=== PATIENT | female | born 1960 | race Caucasian/White ===

== ENCOUNTER 2017-12-12 08:54 | Observation (INO) ==
[2017-12-12] MEDS ORDERED: NS 1,000 ML IV ONE (09:27)
[2017-12-12] MEDS ORDERED: KETOROLAC 30 MG/ML INJECTION IVP ONE (09:38)
[2017-12-12] MEDS ORDERED: ONDANSETRON 4 MG/2 ML INJECTION IVP ONE (09:41)
--- NOTE | 2017-12-12 09:53 | Emergency Department Report ---
Nausea/Vomiting/Diarrhea HPI - General Chief complaint: Abdominal Pain Stated complaint: abd pain Time Seen by Provider: 12/12/17 09:00 Source: patient, RN notes reviewed, old records reviewed, other ("Friend") Mode of arrival: wheelchair Limitations: no limitations - History of Present Illness HPI Narrative: 57yo woman presents to the ER for evaluation of N/V/D. Pt is s/p recent mastectomy/oophorectomy for CA. Pt has completed chemo (off x3 weeks now) and other interventions. Had surgery 2 weeks ago for a seroma or abscess (unclear at this time) in [place]; pt has a SOPHIA drain still in place. Pt got mad at her yesterday and at 1/2 can of peanuts. This AM at 0130, pt began to have diarrhea. 1hr later, she developed N/V. Now pt has no more V/D, but is still nauseated and is 'belching' frequently. Pts last oral intake was at 1800 yesterday. MD complaint: nausea, vomiting, diarrhea Onset (ago): hour(s) (10) Description of Vomiting: food contents Description of Diarrhea: other (Loose stools) Associated Abdominal Pain: Yes Location of pain: diffuse Severity: moderate Quality: cramping Consistency: colicky Relieving factors: none Exacerbating factors: movement Context: possible food poisoning, recent surgery/procedure Associated symptoms: denies other symptoms - Related Data Home Medications Medication Instructions Recorded Confirmed Duloxetine [Cymbalta] 30 mg PO BID #0 cap 07/10/16 12/12/17 Lipitor (atorvastatin) 40 mg tablet 40 mg PO DAILY tab 06/09/17 12/12/17 Metoprolol Tartrate [Lopressor] 25 mg PO BID 07/21/17 12/12/17 Aspirin/Acetaminophen/Caffeine 1 each PO PRN 09/14/17 12/12/17 [Excedrin Migraine Caplet] Acetaminophen [Pain Relief] 1,000 mg PO Q8H PRN 12/12/17 12/12/17 Aspirin [Aspirin EC] 81 mg PO DAILY 12/12/17 12/12/17 Diclofenac Potassium 75 mg PO BID 12/12/17 12/12/17 Gabapentin [Neurontin] 400 mg PO TID 12/12/17 12/12/17 Ibuprofen [Ibu] 600 mg PO QID PRN 12/12/17 12/12/17 cephALEXin [Cephalexin] 500 mg PO QID 12/12/17 12/12/17 Previous Rx's Medication Instructions Recorded Oxycodone/Acetaminophen 5/325 1 - 2 tab PO Q5H PRN #5 tab 09/14/17 [Percocet 5/325] Allergies Allergy/AdvReac Type Severity Reaction Status Date / Time niacin Allergy Unknown REDNESS Verified 12/12/17 09:18 Sulfa (Sulfonamide Allergy Unknown BLISTERS Verified 12/12/17 09:18 Antibiotics) IN MOUTH Review of Systems All systems: reviewed and negative except as stated Gastrointestinal: Reports: as per HPI, abdominal pain, nausea, vomiting, diarrhea. Denies: constipation, hematemesis, melena, hematochezia PFSH Patient Stated Medical History Migraine Yes Cataracts Yes Hearing Loss Yes: wears hearing aides/left one in place Other HEENT Yes: wears glasses Coronary Artery Disease Yes Hypertension Yes Sleep Apnea Yes: wears cpap at night Gastroesophageal Reflux Yes Disease Anemia Yes Osteoarthritis Yes Anesthesia Reactions Yes: NAUSEA Depression Yes Fibroids Yes Ovarian Cysts Yes Clinic Medical History (Last Updated 09/08/17 @ 16:08 by Gabe Womack MD) Cyst of ovary (Resolved Medical) S/P bilateral oophorectomy MIKE (obstructive sleep apnea) (Chronic Medical) Migraine headache (Chronic Medical) Arthritis (Chronic Medical) Depression (Chronic Medical) Anxiety (Chronic Medical) Hypercholesterolemia (Chronic Medical) Breast cancer (Acute Medical 05/19/17) Oncologist: Dr. aCsh Diagnosed: 05/19/2017 invasive ductal carcinoma, SBR/Florentino Grade 3 - Triple Negative receptor studies. Negative lymph node biopsy. Tx: Bilateral mastectomies with left axillary SLNB. Anemia (Chronic Medical) Acid reflux (Chronic Medical) HTN (hypertension) (Chronic Medical) CAD (coronary artery disease) (Chronic Medical) Auto Body Technician: Dr. Daniels S/P CABG x5 in 05/2016 Surgical History: * Robotic bilateral oophorectomy (completion of prior partial oophorectomy) - by Dr. Gatito Peters at in [place], [place]. * Bilateral mastectomies, Left axillary sentinel lymph node biopsy - 07/22/[address] Womack at [facility] in [place], [place]. * Colonoscopy 09/01/2016 - Dr. Womack at [facility] in [place], [place]. Endoscopy revealed Moderate sigmoid diverticulosis. * Coronary artery bypass graft x5 - 05/[address] Sheets at in [place], [place]. * Laparoscopic unilateral salpingo-oophorectomy ( patient retains one ovary but is not sure which side) - 2001 at [facility], [place], [place]. * Open Hysterectomy via a Pfannenstiel incision - 1987 in [facility]. * C- Sections - 1986 in [place], [place]. * C-Sections - 1982 in [place], [place]. * C- Sections - 1979 in [place], [place]. * Left rotator cuff repair. * Right knee arthroscopy. 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 Physical Exam - Limitations Limitations: no limitations - General General appearance: alert, in no apparent distress, obese (Morbid) - Normal Exams: Head:: Normocephalic without trauma Eyes:: Pupils are PERRLA w/ EOMI, No scleral icterus, irritation, or foreign bodies noted ENMT:: No facial trauma, nasal exudates, pharyngeal erythema, or exudates are noted Neck:: Full range of motion, without adenopathy Lymphatic:: No lymphadenopathy Musculoskeletal:: No tenderness, or deformity noted Integumentary:: No rashes, hives, or bruising noted Neurological:: Patient is alert, and oriented Psychiatric:: Patient exhibits, appropriate attention - Chest Chest inspection: Present: symmetric chest wall rise. Absent: normal inspection (S/p b/l mastectomy), tenderness, rash - Respiratory Respiratory exam: Present: normal lung sounds bilaterally. Absent: respiratory distress, wheezes, stridor, prolonged expiratory phase, crackles - Cardiovascular Cardiovascular exam: Present: regular rate, normal rhythm, normal heart sounds. Absent: rubs, gallop, clicks - Abdominal Exam Abdominal exam: Present: soft, normal bowel sounds. Absent: distention, tenderness, guarding, rebound, rigidity Course - Consultations Consultation #1: Dr. Womack: Would be happy to consult if needed. Appears to be an ileus, rather than adhesive SBO. Time: 11:28 Consultation #2: Hospitalist: Will admit pt for obs and bowel rest. Time: 11:41 Vital Signs Temperature 98.4 F 12/12/17 08:56 Pulse Rate 91 12/12/17 08:56 Respiratory Rate 18 12/12/17 08:56 Blood Pressure 187/93 H 12/12/17 08:56 Pulse Oximetry 95 12/12/17 08:56 Temperature 98.4 F 12/12/17 08:56 Pulse Rate 91 12/12/17 08:56 Respiratory Rate 18 12/12/17 08:56 Blood Pressure 187/93 H 12/12/17 08:56 Pulse Oximetry 95 12/12/17 08:56 Nausea/Vomiting/Diarrhea - MDM Narrative Medical decision making narrative: Pt with ileus vs SBO. Contacted Gen Surg to ensure that he would be comfortable with surgery if required; was agreeable. Contacted Hospitalist for admission for bowel rest and obs. Hospitalist will admit for further obs and eval. - Differential Diagnosis Likely: traveler's diarrhea, food poisoning, gastroenteritis, drug-induced nausea and vomiting, dehydration - Medical Records Attestation: I reviewed the patient's medical records. - Lab Data Attestation: I reviewed the patient's lab results. Result diagrams: 12/12/17 09:37 12/12/17 09:39 Lab Results 12/12/17 12/12/17 12/12/17 Range/Units 09:37 09:39 11:02 WBC 13.9 H (4.5-11.0) T/MM3 RBC 3.54 L (4.00-5.20) M/MM3 Hgb 9.6 L (12-16) GM/DL Hct 31.8 L (36-46) % MCV 89.8 (80-100) UM3 MCH 27.1 (26-34) UUG MCHC 30.2 L (31-37) GM/DL RDW Std Deviation 67.7 H (36.9-50.2) FL Plt Count 450 H (130-400) T/MM3 MPV 7.9 L (9.4-12.4) UM3 Immature Gran % (Auto) Not performed Neut % (Auto) Not performed Lymph % (Auto) Not performed [place] % (Auto) Not performed Eos % (Auto) Not performed Baso % (Auto) Not performed Neut # (Auto) Not performed Lymph # (Auto) Not performed [place] # (Auto) Not performed Eos # (Auto) Not performed Baso # (Auto) Not performed Abs Immat Gran (auto) Not performed Neutrophils % (Manual) 79.0 H (33-66) % Band Neutrophils % 8.0 H (0-6) % Lymphocytes % (Manual) 7.0 L (23-45) % Monocytes % (Manual) 2.0 (0-9.0) % Metamyelocytes % 3.0 H (0-0) % Myelocytes % 1.0 H (0-0) % Neutrophils # (Manual) 11.0 H (1.8-7.7) T/MM3 Band Neutrophils # 1.1 T/MM3 Lymphocytes # (Manual) 1.0 (1-4.8) T/MM3 Monocytes # (Manual) 0.3 (0-0.8) T/MM3 Metamyelocytes # 0.4 T/MM3 Myelocytes # 0.1 T/MM3 Poikilocytosis 1+ Anisocytosis 2+ Ovalocytes 1+ Stomatocytes 1+ RBC Morph Comment Abnormal Turbidity < 20 (0-20) Sodium 140 (134-144) MEQ/L Potassium 4.0 (3.6-5) MEQ/L Chloride 101 (98-107) MEQ/L Carbon Dioxide 27 (22-30) MEQ/L Anion Gap 12 (5-15) meq/L BUN 16.0 (7-17) MG/DL Creatinine 0.6 L (0.7-1.2) mg/dL GFR Calculation 102 BUN/Creatinine Ratio 27 H (6-26) RATIO Glucose 146 H (65-110) MG/DL Calculated Osmolality 273 (261-280) MOSM/KG Calcium 9.5 (8.4-10.2) MG/DL Total Bilirubin 0.50 (0.20-1.30) MG/DL Icterus Index < 2 (0-7) AST 17 (14-36) U/L ALT 19 (1-35) U/L Alkaline Phosphatase 117 (38-126) U/L Total Protein 7.0 (6.3-8.2) g/dL Albumin 3.8 (3.5-5.0) g/dL Globulin 3.2 (2.4-3.6) G/DL Albumin/Globulin Ratio 1.2 (1.1-2.2) RATIO Lipase 105 (23-300) U/L Plasma Lactate 0.9 (0.6-2.2) MMOL/L Specimen Hemolysis < 15 (0-25) Ur Collection Type Urine, void-cc/notcc Urine Color Yellow (YELLOW) Urine Clarity Clear Urine pH 8.5 A (5.0-8.0) Ur Specific [place] 1.010 L (1.015-1.025) Urine Protein Negative (NEGATIVE) Urine Glucose (UA) Negative (NEGATIVE) Urine Ketones Trace A (NEGATIVE) Urine Occult Blood Negative (NEGATIVE) Urine Nitrate Negative (NEGATIVE) Urine Bilirubin Negative (NEGATIVE) Urine Urobilinogen 0.2 (NORMAL) EU/DL Ur Leukocyte Esterase Negative (NEGATIVE) Urinalysis Comment Microscopic not ind. - Radiology Data Attestation: I reviewed the patient's radiology results. CT Abd/pelv: IMPRESSION: 1. There are several loops of small bowel demonstrate mucosal thickening and haziness of the adjacent mesentery consistent with acute enteritis. There is fluid distending approximately 4 loops of small bowel in the left mid abdomen, measuring up to to 3.4 cm caliber. There is a gradual transition to nondistended bowel in the upper pelvis where there is a segment of enteritis. This is suspicious for an early functional small bowel obstruction. 2. There is a percutaneous drainage catheter that terminates in the left upper pelvis. There is a 1.5 x 6.2 x 4.8 cm rim-enhancing fluid collection around the drainage catheter consistent with the given history of intra-abdominal abscess. 3. There is generalized nondistention and mucosal thickening of the colon. This is probably spasm but I cannot exclude mild colitis. Disposition Clinical Impression: SBO (small bowel obstruction), Enteritis Disposition: To [facility] Print Language: Lebanese Condition: Improved Prescriptions: No Action Duloxetine [Cymbalta] 30 mg PO BID #0 cap Metoprolol Tartrate [Lopressor] 25 mg PO BID Gabapentin [Neurontin] 400 mg PO TID Acetaminophen [Pain Relief] 1,000 mg PO Q8H PRN PRN Reason: Pain Aspirin [Aspirin EC] 81 mg PO DAILY Ibuprofen [Ibu] 600 mg PO QID PRN PRN Reason: Pain cephALEXin [Cephalexin] 500 mg PO QID Aspirin/Acetaminophen/Caffeine [Excedrin Migraine Caplet] 1 each PO PRN Oxycodone/Acetaminophen 5/325 [Percocet 5/325] 1 - 2 tab PO Q5H PRN #5 tab PRN Reason: Pain Diclofenac Potassium 75 mg PO BID Lipitor (atorvastatin) 40 mg tablet 40 mg PO DAILY tab Referrals: Dean Douglass DO [Physician] - Kayleen Wilson APRN [Primary Care Provider] - Time of Disposition: 11:50 - Seen By: physician
[2017-12-12] MEDS ORDERED: IOHEXOL 300mg/ml 100ml INJECTION ONE (10:08)
[2017-12-12] MEDS ORDERED: SALINE FLUSH 10ml SYRINGE ONE (10:08)
--- NOTE | 2017-12-12 13:03 | History & Physical Report ---
History of Present Illness Date: 12/12/17 Chief complaint: N/V/Diarrhea HPI: Mrs. Miramontes is a 57 y/o woman with a history of breast cancer, s/p bilateral mastectomies and bilateral salpingo-oophorectomies (recently), chemotherapy ( final chemo done on 11/23/17) and was subsequently found to have developed a seroma at the surgical site. She had fluid drained on October 23 at [facility] She underwent CT-guided aspiration on October 23 with injection of alcohol as a sclerosant. She returned to IR at [facility] on November [address]-guided left pelvic drainage catheter exchange with sclerotherapy again. She had a recent UTI (11/03/17) with cx growing Escherichia coli which was a montoya sensitive organism, and 50-100,000 colonies of corynebacterium species. The drainage from her SOPHIA pelvic drain was cultured as well on November 04. REM stain showed no organisms and few neutrophils. The culture grew Staph aureus, Pantoea, and a gram-positive teodoro, all 3 were isolated from enrichment broth only. The Staph aureus was positive for the MecA gene which usually indicates that it is MRSA however the susceptibility report indicated that this was sensitive to oxacillin. The Pantoea sensitive to all agents tested. The patient was started on vancomycin through the infusion center last , November 05. She also has a history of obstructive sleep apnea utilizing a CPAP. She has a history of anxiety and depression. She has a history of migraine headaches, arthritis, dyslipidemia, anemia, hypertension and acid reflux. She has history of coronary artery disease having had bypass surgery with 5 vessel bypass in May [address] Sheets[address] Her college administrator is Dr. Daniels. This morning at approximately 130 in the morning she developed abdominal pain with subsequent diarrhea. She states initially she had a relatively formed bowel movement and then subsequently less and less formed stools times 3. She felt abdominal bloating and distention. She then developed nausea and vomiting and had 2 episodes of emesis. She states she vomited up her peanuts that she ate last night. She also reported a lot of belching. She is currently staying at a friends house by the name of Mariangeldaniel who recommended she be seen in the ER. In the emergency room her white blood count was mildly elevated at 13,900 was 8 % bands. Lipase and plasma lactate were both within normal limits. Urine analysis was unremarkable. She was afebrile. Blood pressure was initially high at 187/93 but came down to 135/72. She is on room air satting 95%. Patient was admitted to the medical floor. When seen by me she is resting comfortably and feeling better. She is not having the belching she had before and she denies nausea. She is not been passing any flatus. She is mildly tender in the bilateral upper quadrants. She does still feel a bit bloated. She denies feeling any fevers but has been having some chills and hot flashes lately. This is not new for her any time she gets ill. She was a bit sweaty but this too is not new for her and happens frequently. She did get a bit lightheaded when she was vomiting. She denies headache. She denies cough or sputum production. She denies any chest pain, pressure or tightness. She denies any palpitations. She denies any genitourinary symptoms. She denies any problems with lower extremity edema. Patient reports about 10 mL to 15 mL a day of SOPHIA drain output. She thinks will be coming out next week when she follows up. Chest x-ray appears unremarkable. Official report is still pending. CT of the abdomen and pelvis appears to show ileus. Dr. Womack did get consult in the ER and felt that that was accurate and did not feel there was an adhesive small bowel obstruction. Official read is still pending. Review of Systems Review of systems: All 14 point review of systems were reviewed and are negative except as noted in the history of present illness. Past Medical History Medical History: Medical History (Last Updated 12/12/17 @ 13:04 by Lynette Page MD) Cyst of ovary (Resolved) S/P bilateral oophorectomy MIKE (obstructive sleep apnea) (Chronic) Migraine headache (Chronic) Arthritis (Chronic) Depression (Chronic) Anxiety (Chronic) Hypercholesterolemia (Chronic) Breast cancer (Acute) Onset Date: 05/19/17 Oncologist: Dr. Cash Diagnosed: 05/19/2017 invasive ductal carcinoma, SBR/Florentino Grade 3 - Triple Negative receptor studies. Negative lymph node biopsy. Tx: Bilateral mastectomies with left axillary SLNB. Anemia (Chronic) Acid reflux (Chronic) HTN (hypertension) (Chronic) CAD (coronary artery disease) (Chronic) Shop Fitter: Dr. Daniels S/P CABG x5 in 05/[address] Sheets Medical History Updates: History of hyperglycemia with recent hospitalization. recent siroma of the abdomen s/p drain placed-still present 12/12/17 Surgical History: * Robotic bilateral oophorectomy (completion of prior partial oophorectomy) - by Dr. Gatito Peters at [facility] in [place], [place]. * Bilateral mastectomies, Left axillary sentinel lymph node biopsy - 07/22/[address] Womack at [facility] in [place], [place]. * Colonoscopy 09/01/2016 - Dr. Womack at [facility] in [place], [place]. Endoscopy revealed Moderate sigmoid diverticulosis. * Coronary artery bypass graft x5 - 05/[address] Sheets at [facility] in [place], [place]. * Laparoscopic unilateral salpingo-oophorectomy ( patient retains one ovary but is not sure which side) - 2001 at [facility], [place] * Open Hysterectomy via a Pfannenstiel incision - 1987 in [facility]. * C- Sections - 1986 in [place], [place]. * C-Sections - 1982 in [place], [place]. * C- Sections - 1979 in [place], [place]. * Left rotator cuff repair. * Right knee arthroscopy. CT-guided sclerotherapy of L pelvic seroma, 10/23/17 and 11/02/17 Family History: Family History (Last Reviewed 09/08/17 @ 15:39 by Ermias Bui) Mother Alive at 77 High blood pressure Alzheimer disease Father , at 62 Diabetes Heart failure CAD (coronary artery disease) Complications from cholecystectomy Paternal Grandfather Stroke Family History Updates: None, accurate as above Family History: As Above - Social History Smoking status: Never smoker Substance use type: does not use Alcohol intake: never Housing: house (currently living with friend Pratibha) Household members: spouse (usually, now at friends home due to dogs in her home) Does patient use chewing tobacco?: No Medications Home Medications Medication Instructions Recorded Confirmed Type Duloxetine [Cymbalta] 30 mg PO BID #0 cap 07/10/16 12/12/17 History Lipitor (atorvastatin) 40 mg tablet 40 mg PO DAILY tab 06/09/17 12/12/17 History Metoprolol Tartrate [Lopressor] 25 mg PO BID 07/21/17 12/12/17 History Aspirin/Acetaminophen/Caffeine 1 each PO PRN 09/14/17 12/12/17 History [Excedrin Migraine Caplet] Oxycodone/Acetaminophen 5/325 1 - 2 tab PO Q5H PRN #5 tab 09/14/17 12/12/17 Rx [Percocet 5/325] Acetaminophen [Pain Relief] 1,000 mg PO Q8H PRN 12/12/17 12/12/17 History Aspirin [Aspirin EC] 81 mg PO DAILY 12/12/17 12/12/17 History Diclofenac Potassium 75 mg PO BID 12/12/17 12/12/17 History Gabapentin [Neurontin] 400 mg PO TID 12/12/17 12/12/17 History Ibuprofen [Ibu] 600 mg PO QID PRN 12/12/17 12/12/17 History cephALEXin [Cephalexin] 500 mg PO QID 12/12/17 12/12/17 History Allergies Allergy/AdvReac Type Severity Reaction Status Date / Time niacin Allergy Unknown REDNESS Verified 12/12/17 09:18 Sulfa (Sulfonamide Allergy Unknown BLISTERS Verified 12/12/17 09:18 Antibiotics) IN MOUTH Exam Vital Signs: Temperature 98.7 F 12/12/17 12:29 Pulse Rate 84 12/12/17 12:29 Respiratory Rate 16 12/12/17 12:29 Blood Pressure 149/71 H 12/12/17 12:29 Pulse Oximetry 95 12/12/17 12:29 Comments: Gen: alert and oriented. NAD Skin: warm and dry HEENT: NC/AT PERRL, EOMI, Sclera, lids and conjunctiva wnl, MMM, OP clear, edentulous, Bald 2/2 chemo Neck: Short, thick, supple. No JVD, Carotids 2+ without bruits. Lungs: clear, No rales, rhonchi, wheezes. CV: regular. Soft murmur. No rub or gallop Abd: soft. Slightly TTP diffusely. [place] at the lap insertion sites, umbilical area. Dressings in place horizontally below umbilicus. ?slightly distended. +BS No evidence of infection or significant drainage. There is a SOPHIA drain in the left mid abdomen with minimal accumulation of fluid MS: Trace edema bilateral LE. Good strength and ROM. Neuro: No focal deficit Psy: normal mood and affect Results - Labs CBC & Chem 7: 12/12/17 09:37 12/12/17 09:39 Assessment and Plan Assessment and Plan: 1. Ileus -IV fluids -bowel rest -NPO except ice chips 2. 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 Leukocytosis -repeat in a.m. -no sign of infection at this point 4. Anemia -unknown baseline -will trend labs 5. Hyperglycemia -will check hemoglobin A-1 C -sliding scale insulin 6. Hypertension -on metoprolol 7. Dyslipidemia -on Lipitor 8. Coronary artery disease -patient denies any anginal type symptoms -on aspirin, Lipitor, metoprolol 9. Obstructive sleep apnea - is going to go get her CPAP and bring it in for her to use tonight 10. anxiety and depression -Cymbalta; 11. History of breast cancer status post bilateral mastectomies and chemotherapy 12. Gastric softer reflux -PPI 13. Prophylaxis -SCDs, PPI - Physician Narrative Narrative: Date: 12/12/17 Time: 1251 Hospital Course Summary Disclaimer: The visit summary below is not to be considered part of the above Progress Note.
[2017-12-12 13:10] VITALS: BMI 41.2
[2017-12-12] MEDS ORDERED: ACETAMINOPHEN 325 MG TABLET PO PRN (13:23)
[2017-12-12] MEDS ORDERED: BISACODYL 10 MG SUPPOSITORY RECTALLY PRN (13:23)
[2017-12-12] MEDS ORDERED: ONDANSETRON 4 MG/2 ML INJECTION IVP PRN (13:23)
[2017-12-12] MEDS ORDERED: IBUPROFEN 600 MG TABLET PO PRN (13:28)
[2017-12-12] MEDS ORDERED: APAP/ASA/Caffeine 1 TAB PO SCH (13:30)
[2017-12-12] MEDS ORDERED: APAP/ASA/Caffeine 1 TAB PO PRN (13:45)
[2017-12-12] MEDS: POLYETHYL GLYCOL 3350 17gm PACKET PO SCH (15:27)
[2017-12-12] MEDS: NS 1,000 ML IV SCH (15:39)
[2017-12-12] MEDS: GABAPENTIN 400 MG CAPSULE PO SCH ×2 (15:41→21:19)
[2017-12-12] MEDS ORDERED: HYDROMORPHONE 2 MG TABLET PO PRN (17:05)
[2017-12-12] MEDS ORDERED: KETOROLAC 30 MG/ML INJECTION IVP PRN (17:05)
[2017-12-12] MEDS ORDERED: METOCLOPRAMIDE 10mg/2ml INJECTION IVP PRN (17:48)
[2017-12-12] MEDS ORDERED: PROCHLORPERAZINE 10 MG/2 ML INJECTION IVP PRN (17:49)
[2017-12-12] MEDS ORDERED: PROMETHAZINE 25 MG INJECTION IVP PRN (17:49)
[2017-12-12] MEDS: CEFTRIAXONE 1 G in NS 100 ML IV SCH (18:54)
[2017-12-12] MEDS: DULOXETINE 30 MG CAPSULE PO SCH (21:18)
[2017-12-12] MEDS: DICLOFENAC SODIUM DR 25 MG TABLET PO SCH (21:18)
[2017-12-12] MEDS: ATORVASTATIN 40 MG TABLET PO SCH (21:19)
[2017-12-13] MEDS: NS 1,000 ML IV SCH ×4 (00:06→21:41)
--- NOTE | 2017-12-13 09:08 | XRay Report ---
Indication: H/o CA; N/V/D PROCEDURE: XR chest 1V: Encounter: Initial Comparison: September 28, 2016 Findings: The lungs are stable in appearance without new focal airspace consolidation. There is no pleural effusion or pneumothorax. The heart size, pulmonary vascularity and mediastinal contours are unchanged. Prior CABG. Right IJ port catheter. IMPRESSION: Stable appearance of the chest without acute cardiopulmonary disease. .
--- NOTE | 2017-12-13 09:16 | CT Scan Report ---
Indication: Possible SBO PROCEDURE: CT abdomen pelvis w con: Encounter: Initial Comparison: October 09, 2017 Technique: Axial CT images were performed through the abdomen and pelvis after the administration of intravenous contrast. Coronal and sagittal two-dimensional reformats. Automated Exposure Control and Iterative Reconstruction dose reducing techniques were utilized. Contrast: Omnipaque 300 100 mL Findings: Mild atelectasis in the lung bases. Small amount of free fluid around the liver. No enhancing liver mass or bile duct dilatation. The gallbladder, spleen, pancreas and adrenal glands are within normal limits. Kidneys are stable. New surgical drain in the left abdomen and pelvis at the site of the prior cystic left adnexal area lesion. There is a small amount of free fluid and extraluminal gas remaining in this location around the tip of the drain measuring approximately 3 x 4 cm in total diameter. There are dilated fluid-filled small bowel loops seen measuring up to 3.5 cm in diameter. The colon is decompressed. Small amount of fluid in the left paracolic gutter and pelvis. Edema and inflammation in the left anterior abdominal mesentery surrounding thick-walled loops of small bowel. There is gradual transition to more decompressed small bowel in the central abdomen. There is evidence of adhesions between the small bowel and the ventral abdominal wall. Midline abdominal wound with surgical coral. Impression: Interval surgery with fluid and gas in the left adnexal area around the surgical drain that could represent small area of residual abscess. There is small bowel wall thickening and edema of the mesentery that could be due to the surgery, enteritis or potentially small bowel ischemia. This is resulting in a partial small bowel obstruction of mild to moderate grade. Surgical evaluation is recommended. There is a preliminary report by [facility]. .
[2017-12-13] MEDS: ASPIRIN *EC* 81 MG TABLET PO SCH (09:33)
[2017-12-13] MEDS: ATORVASTATIN 40 MG TABLET PO SCH (09:33)
[2017-12-13] MEDS: GABAPENTIN 400 MG CAPSULE PO SCH ×3 (09:34→21:55)
[2017-12-13] MEDS: DICLOFENAC SODIUM DR 25 MG TABLET PO SCH ×2 (09:34→21:54)
[2017-12-13] MEDS: DULOXETINE 30 MG CAPSULE PO SCH ×2 (09:36→21:54)
[2017-12-13] MEDS: POLYETHYL GLYCOL 3350 17gm PACKET PO SCH (09:37)
--- NOTE | 2017-12-13 11:02 | XRay Report ---
Indication: Ileus PROCEDURE: XR KUB: Encounter: Initial Comparison: CT dated December 12, 2017 Findings: Mildly prominent small bowel loops in the central abdomen again noted measuring 3.7 cm in diameter. Lung bases are grossly clear. There is gas in small and large bowel. Surgical drain again noted in the left pelvis. Surgical skin coral noted. Impression: Mildly dilated small bowel loops could represent a partial obstruction as suggested on the recent CT or ileus. .
--- NOTE | 2017-12-13 11:23 | Progress Note ---
- Date 12/13/17 Subjective: Mrs. Miramontes is a 57 y/o woman with a history of breast cancer, s/p bilateral mastectomies and bilateral salpingo-oophorectomies (recently), chemotherapy ( final chemo done on 11/23/17) and was subsequently found to have developed a seroma at the surgical site. She had fluid drained on October 23 at [facility] She underwent CT-guided aspiration on October 23 with injection of alcohol as a sclerosant. She returned to IR at [facility] on November [address]-guided left pelvic drainage catheter exchange with sclerotherapy again. She had a recent UTI (11/03/17) with cx growing Escherichia coli which was a montoya sensitive organism, and 50-100,000 colonies of corynebacterium species. The drainage from her SOPHIA pelvic drain was cultured as well on November 04. REM stain showed no organisms and few neutrophils. The culture grew Staph aureus, Pantoea, and a gram-positive teodoro, all 3 were isolated from enrichment broth only. The Staph aureus was positive for the MecA gene which usually indicates that it is MRSA however the susceptibility report indicated that this was sensitive to oxacillin. The Pantoea sensitive to all agents tested. The patient was started on vancomycin through the infusion center last , November 05. She also has a history of obstructive sleep apnea utilizing a CPAP. She has a history of anxiety and depression. She has a history of migraine headaches, arthritis, dyslipidemia, anemia, hypertension and acid reflux. She has history of coronary artery disease having had bypass surgery with 5 vessel bypass in [place] [address] Sheets[address] Her solar photovoltaic systems engineer is Dr. Daniels. This morning at approximately 130 in the morning she developed abdominal pain with subsequent diarrhea. She states initially she had a relatively formed bowel movement and then subsequently less and less formed stools times 3. She felt abdominal bloating and distention. She then developed nausea and vomiting and had 2 episodes of emesis. She states she vomited up her peanuts that she ate last night. She also reported a lot of belching. She is currently staying at a friends house by the name of Pratibha who recommended she be seen in the ER. In the emergency room her white blood count was mildly elevated at 13,900 was 8 % bands. Lipase and plasma lactate were both within normal limits. Urine analysis was unremarkable. She was afebrile. Blood pressure was initially high at 187/93 but came down to 135/72. She is on room air satting 95%. Patient was admitted to the medical floor. When seen by me she is resting comfortably and feeling better. She is not having the belching she had before and she denies nausea. She is not been passing any flatus. She is mildly tender in the bilateral upper quadrants. She does still feel a bit bloated. She denies feeling any fevers but has been having some chills and hot flashes lately. This is not new for her any time she gets ill. She was a bit sweaty but this too is not new for her and happens frequently. She did get a bit lightheaded when she was vomiting. She denies headache. She denies cough or sputum production. She denies any chest pain, pressure or tightness. She denies any palpitations. She denies any genitourinary symptoms. She denies any problems with lower extremity edema. Patient reports about 10 mL to 15 mL a day of SOPHIA drain output. She thinks will be coming out next week when she follows up. Chest x-ray appears unremarkable. Official report is still pending. CT of the abdomen and pelvis appears to show ileus. Dr. Womack did get consult in the ER and felt that that was accurate and did not feel there was an adhesive small bowel obstruction. 12/13/17 Ms. Miramontes was very nauseous last evening prior to my leaving at 7 PM. I did order multiple antirheumatics and then ultimately a NG tube should she needed. She did not require the NG tube. This morning she is feeling much better. She denies any nausea. She still has not had a bowel movement. She is passing some flatus. She denies fever or chills. She denies lightheadedness. She denies any shortness of breath. She denies chest pressure or palpitations. She said no nausea this morning. No abdominal pain except incisional pain. SOPHIA drain with minimal output. Urinating without difficulty. Ambulating without problems. Objective Vital signs: Temperature 97.2 F 12/13/17 08:00 Pulse Rate 82 12/13/17 08:00 Respiratory Rate 14 12/13/17 08:00 Blood Pressure 137/73 12/13/17 08:00 Pulse Oximetry 98 12/13/17 00:00 Height/Weight/BMI: Height 1.63 m Weight 109.5 kg Body Mass Index 41.2 Comments: Gen: alert and oriented. NAD Skin: warm and dry HEENT: NC/AT PERRL, EOMI, Sclera, lids and conjunctiva wnl, MMM, OP clear, edentulous, Bald 2/2 chemo Neck: Short, thick, supple. No JVD, Carotids 2+ without bruits. Lungs: clear, No rales, rhonchi, wheezes. CV: regular. Soft murmur. No rub or gallop Abd: soft. Slightly TTP diffusely. [place] at the lap insertion sites, umbilical area. Dressings in place horizontally below umbilicus. ?slightly distended. +BS No evidence of infection or significant drainage. There is a SOPHIA drain in the left mid abdomen with minimal output MS: Trace edema bilateral LE. Good strength and ROM. Neuro: No focal deficit Psy: normal mood and affect Results - Labs CBC & Chem 7: 12/13/17 03:51 12/13/17 03:51 Assessment and Plan Assessment and Plan: 1. Ileus -IV fluids -Tolerated ice chips, advance to clear liquid diet -Surgery consulted 2. 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 Leukocytosis -Resolved -No sign of infection 4. Anemia -unknown baseline -Will repeat H&H this afternoon 5. Hyperglycemia -A1C is 6.0 -sliding scale insulin 6. Hypertension -on metoprolol-good control 7. Dyslipidemia -on Lipitor 8. Coronary artery disease -patient denies any anginal type symptoms -on aspirin, Lipitor, metoprolol 9. Obstructive sleep apnea -CPAP 10. anxiety and depression -Cymbalta; 11. History of breast cancer status post bilateral mastectomies and chemotherapy 12. GERD -PPI 13. Prophylaxis -SCDs, PPI - Physician Narrative Narrative: Date: 12/13/17 Time: 1121 Hospital Course Summary Disclaimer: The visit summary below is not to be considered part of the above Progress Note.
[2017-12-13] MEDS: VANCOMYCIN 250mg/5ml ORAL LIQ PO SCH ×2 (14:57→21:53)
[2017-12-13] MEDS: SALINE FLUSH 10ml SYRINGE IV PRN (15:00)
[2017-12-13] MEDS: CEFTRIAXONE 1 G in NS 100 ML IV SCH (17:37)
[2017-12-14] MEDS: NS 1,000 ML IV SCH ×3 (00:05→11:54)
[2017-12-14 00:44] VITALS: O2SAT 95
[2017-12-14] MEDS: VANCOMYCIN 250mg/5ml ORAL LIQ PO SCH ×2 (03:51→09:03)
[2017-12-14 08:09] VITALS: BP 161/89; PULSE 80; RESP 24; TEMP 97.2
[2017-12-14] MEDS: DICLOFENAC SODIUM DR 25 MG TABLET PO SCH (09:03)
[2017-12-14] MEDS: POLYETHYL GLYCOL 3350 17gm PACKET PO SCH (09:03)
[2017-12-14] MEDS: DULOXETINE 30 MG CAPSULE PO SCH (09:03)
[2017-12-14] MEDS: GABAPENTIN 400 MG CAPSULE PO SCH (09:04)
[2017-12-14] MEDS: ATORVASTATIN 40 MG TABLET PO SCH (09:04)
[2017-12-14] MEDS: ASPIRIN *EC* 81 MG TABLET PO SCH (09:05)
--- NOTE | 2017-12-14 09:16 | Consultation ---
DATE OF CONSULTATION 12/13/2017 CONSULTING PHYSICIAN Gabe Womack MD REQUESTING PHYSICIAN Dr. Page REASON FOR CONSULTATION Ileus versus small bowel obstruction. IMPRESSION 1. Ileus versus partial small bowel obstruction of the small bowel in the left abdomen. I would favor the diagnosis of an ileus causing a functional small bowel obstruction and I think her ileus is related to inflammation from her seroma that has been sclerosed twice along with her postoperative changes within the abdomen. 2. Personal history of triple negative breast cancer. RECOMMENDATIONS 1. I agree with continued advance of Clara's diet. She seems to be tolerating this well now. 2. Continue postoperative care with Dr. Peters in [place]. 3. Please do not hesitate to call me if additional surgical evaluation is required. HISTORY OF PRESENT ILLNESS Clara is a 57-year-old female with a history of triple negative breast cancer who is status post bilateral mastectomies with left sentinel lymph node biopsy in July 2017. She also had a right internal jugular PowerPort placed by me on 09/14/2017. She recently had a robotic oophorectomy by Dr. Peters in [place]. Her oophorectomy was complicated with a seroma formation. Her seroma has had a drain placed which remains in position. She had fluid drained on October 23 at [facility] and underwent a CT-guided drain placement with alcohol sclerosant. She had exchange of her drainage catheter on 11/02/2017 with additional sclerotherapy. She has had a positive culture from the drain fluid and a recent positive urine culture. She was admitted to the hospital yesterday after the onset of abdominal pain, nausea, and vomiting. She had had a CT scan done in the emergency department that showed dilated small bowel with a gradual transition to decompressed bowel. There was apparent inflammation of the bowel in the region. Her abdominal pain has improved and she is no longer having any nausea or vomiting. She did have a bowel movement this morning. She is planning to call Dr. Peters for a followup visit after she is dismissed from the hospital. PAST MEDICAL HISTORY Reviewed. PAST SURGICAL HISTORY Reviewed - only update was her recent PowerPort placement. ALLERGIES AND MEDICATIONS See the EMR. REVIEW OF SYSTEMS GENERAL: The patient denies fevers, chills or sweats. ABDOMEN: See History of Present Illness. She has had looser stools but denies diarrhea. She attributed her looser stools to the chemotherapy. LABORATORY DATA White blood cell count is normal at 10.[address] scan the abdomen and pelvis from yesterday was personally reviewed by me. There is inflammation around the region of the drain in the left abdomen with thickening of the arceo of the small bowel. PHYSICAL EXAMINATION VITAL SIGNS: Temperature 97.7, pulse 83, blood pressure 145/75, respiratory rate 26, oxygen saturation 93% on room air. GENERAL: The patient was resting. She awakened easily and was in no acute distress. ABDOMEN: Soft, nontender. She has multiple incisions in place with coral. She does have a dressing to the lower midline. She has a drain in the left abdomen with serosanguineous output. [facility]
--- NOTE | 2017-12-14 11:48 | Discharge Summary ---
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 difficile - Radiology Radiology: 12/12/17 CT abdomen and pelvis with contrast Impression: Interval surgery with fluid and gas in the left adnexal area around the surgical drain that could represent small area of residual abscess. There is small bowel wall thickening and edema of the mesentery that could be due to the surgery, enteritis or potentially small bowel ischemia. This is resulting in a partial small bowel obstruction of mild to moderate grade. 12/13/17 KUB Impression: Mildly dilated small bowel loops could represent a partial obstruction as suggested on the recent CT or ileus. History of Present Illness HPI: Mrs. Miramontes is a 57 y/o woman with a history of breast cancer, s/p bilateral mastectomies and bilateral salpingo-oophorectomies (recently), chemotherapy ( final chemo done on 11/23/17) and was subsequently found to have developed a seroma at the surgical site. She had fluid drained on October 23 at [facility]. She underwent CT-guided aspiration on October 23 with injection of alcohol as a sclerosant. She returned to IR at [facility] on November [address]-guided left pelvic drainage catheter exchange with sclerotherapy again. She had a recent UTI (11/03/17) with cx growing Escherichia coli which was a montoya sensitive organism, and 50-100,000 colonies of corynebacterium species. The drainage from her SOPHIA pelvic drain was cultured as well on November 04. REM stain showed no organisms and few neutrophils. The culture grew Staph aureus, Pantoea, and a gram-positive teodoro, all 3 were isolated from enrichment broth only. The Staph aureus was positive for the MecA gene which usually indicates that it is MRSA however the susceptibility report indicated that this was sensitive to oxacillin. The Pantoea sensitive to all agents tested. The patient was started on vancomycin through the infusion center last , November 05. She also has a history of obstructive sleep apnea utilizing a CPAP. She has a history of anxiety and depression. She has a history of migraine headaches, arthritis, dyslipidemia, anemia, hypertension and acid reflux. She has history of coronary artery disease having had bypass surgery with 5 vessel bypass in [place] [address] Sheets. Her hardness inspector is Dr. Daniels. This morning at approximately 130 in the morning she developed abdominal pain with subsequent diarrhea. She states initially she had a relatively formed bowel movement and then subsequently less and less formed stools times 3. She felt abdominal bloating and distention. She then developed nausea and vomiting and had 2 episodes of emesis. She states she vomited up her peanuts that she ate last night. She also reported a lot of belching. She is currently staying at a friends house by the name of Pratibha who recommended she be seen in the ER. In the emergency room her white blood count was mildly elevated at 13,900 was 8 % bands. Lipase and plasma lactate were both within normal limits. Urine analysis was unremarkable. She was afebrile. Blood pressure was initially high at 187/93 but came down to 135/72. She is on room air satting 95%. Patient was admitted to the medical floor. When seen by me she is resting comfortably and feeling better. She is not having the belching she had before and she denies nausea. She is not been passing any flatus. She is mildly tender in the bilateral upper quadrants. She does still feel a bit bloated. She denies feeling any fevers but has been having some chills and hot flashes lately. This is not new for her any time she gets ill. She was a bit sweaty but this too is not new for her and happens frequently. She did get a bit lightheaded when she was vomiting. She denies headache. She denies cough or sputum production. She denies any chest pain, pressure or tightness. She denies any palpitations. She denies any genitourinary symptoms. She denies any problems with lower extremity edema. Patient reports about 10 mL to 15 mL a day of SOPHIA drain output. She thinks will be coming out next week when she follows up. Chest x-ray appears unremarkable. Official report is still pending. CT of the abdomen and pelvis appears to show ileus. Dr. Womack did get consult in the ER and felt that that was accurate and did not feel there was an adhesive small bowel obstruction. Official read is still pending. Objective Vital signs: Temperature 97.2 F 12/14/17 08:08 Pulse Rate 80 12/14/17 08:08 Respiratory Rate 24 12/14/17 08:08 Blood Pressure 161/89 H 12/14/17 08:08 Pulse Oximetry 95 12/14/17 08:08 Height/Weight/BMI: Height 1.63 m Weight 109.6 kg Body Mass Index 41.2 Comments: Gen: alert and oriented. NAD Skin: warm and dry HEENT: NC/AT PERRL, EOMI, Sclera, lids and conjunctiva wnl, MMM, OP clear, edentulous, Bald 2/2 chemo Neck: Short, thick, supple. No JVD, Carotids 2+ without bruits. Lungs: clear, No rales, rhonchi, wheezes. CV: regular. Soft murmur. No rub or gallop Abd: soft. NT/ND, +BS C[place] at the lap insertion sites, umbilical area. Dressings in place horizontally below umbilicus. Mild erythema around staple sites in the proximal areas and surrounding erythema in the lower [place] There is a SOPHIA drain in the left mid abdomen MS: Trace edema bilateral LE. Good strength and ROM. Neuro: No focal deficit Psy: normal mood and affect Hospital Course This is a general summary of the patient's hospital course. For more details refer to the complete medical record. Hospital course: Ms. Miramontes was admitted for an ileus. She had severe nausea and vomiting on admission. She was given multiple antiemetics with marked improvement. She was started on ice chips only but tolerated advancing diet throughout her stay to a regular diet. Her bowels did start moving. Her surgical dressings were changed throughout her stay and continue to look clean and dry and intact. She was up and ambulating in the room. She was found to have C. difficile on her stool and was started on oral vancomycin which she will go home to complete the course. She's feeling quite well and was felt to be stable for discharge. She is to call her surgeon today and get a follow-up appointment in the next few days to address the cindy and her wound. She is continuing to stay with her friend, Pratibha who has been doing her wound dressings and will continue to do so. Blood cultures were negative with no growth after 2 days. Her leukocytosis resolved. Time spent with patient: 25 - 35 minutes Resuscitation Status: Full Code Discharge Plan - Discharge Disposition Disposition: Discharged Home, Self-Care *Condition: Improved Reason For Visit (Visit label in EMR): SBO, enteritis - Discharge Medications *Discharge Medications: New Vancomycin Oral Liq 125 mg PO Q6HR #20 po.syringe PEG 3350 17gm PACKET [Miralax] 17 gm PO DAILY packet Continue Duloxetine [Cymbalta] 30 mg PO BID #0 cap Metoprolol Tartrate [Lopressor] 25 mg PO BID Gabapentin [Neurontin] 400 mg PO TID Acetaminophen [Pain Relief] 1,000 mg PO Q8H PRN PRN Reason: Pain Aspirin [Aspirin EC] 81 mg PO DAILY Ibuprofen [Ibu] 600 mg PO QID PRN PRN Reason: Pain cephALEXin [Cephalexin] 500 mg PO QID Aspirin/Acetaminophen/Caffeine [Excedrin Migraine Caplet] 1 each PO PRN Oxycodone/Acetaminophen 5/325 [Percocet 5/325] 1 - 2 tab PO Q5H PRN #5 tab PRN Reason: Pain Diclofenac Potassium 75 mg PO BID Lipitor (atorvastatin) 40 mg tablet 40 mg PO DAILY tab - Discharge Packet/Instructions *Diet: As tolerated *Activity: As tolerated *Pain Management/Treatment: As prior *Wound Care: Call and get surgical appt [facility] for wound eval Additional Instructions: Make sure you take all the vancomyacin as directed *Expected Signs/Symptoms: Watch for recurrent Nausea, vomiting or diarrhea *Notify Physician if: Watch for recurrent Nausea, vomiting or diarrhea *During Business Hours Contact: PCP or surgeon *After Business Hours Contact: PHysician retail client solutions analyst for PCP or surgeon *Pending Lab/Results: No Pending Lab - Referrals/Follow Up *Referrals/Follow Up: Kayleen Wilson APRN [Primary Care Provider] - 1 Week Aureliano Peters MD [Physician] - ([facility]-pt to call for appt) - Patient Handouts Patient Handouts: Enteritis (GEN), Clostridium Difficile Infection (GEN) - Dismissal Complete Discharge Instructions are:: Complete Physician Narrative - Narrative Attestation Narrative: Date: 12/14/17 Time: 7569
[2017-12-14] MEDS: SALINE FLUSH 10ml SYRINGE IV PRN (13:14)
== END 2017-12-14 13:55 | disposition home health service (06) ==
LOC: MED 08:54 → ED 08:54 → MED 12:30
PROVIDERS: ADMIT Internal Medicine Cardiovascular Disease; ATTEND Internal Medicine Cardiovascular Disease